=== PATIENT | female | born 1975 | race Caucasian/White ===

== ENCOUNTER → 2020-03-06 11:56 | Outpatient (BNVA) | payer BC, SELFPAY | PROVIDERS: Family Provider Family Medicine | DX: Z20.828 Contact with and (suspected) exposure to other viral communicable diseases (principal) | CPT/HCPCS: 87635 ==

== ENCOUNTER → 2024-01-21 10:12 | Outpatient (BNVA) | payer BC, SELFPAY | PROVIDERS: Family Provider Family Medicine; Visit Provider Internal Medicine | DX: E07.9 Disorder of thyroid, unspecified (principal) | CPT/HCPCS: 36415; 83516; 84439; 84443; 86376; 86800 ==

== ENCOUNTER 2024-02-05 10:29 | Outpatient (CLI) | payer BC, SELFPAY ==
--- NOTE | 2024-02-05 11:00 | FL_ITS ---
WS: [id number] FL barium swallow modifd [id number] REASON FOR EXAM: Difficulty swallowing. FLUOROSCOPY TIME: 2min [id number] # OF SPOT FILMS: None FINDINGS: Examination was supervised by the speech therapy department. In the upright sitting position lateral projection in the standing AP projection. The swallowing of varying consistencies of barium was monitored fluoroscopically and video recorded. The speech therapy department will render a detailed report of the swallowing. No aspiration or distal esophageal obstruction was identified. FL/FL barium swallow modifd [id number] IMPRESSION: Modified barium swallow as above.
== END 2024-02-05 10:30 | disposition home or self-care (01) ==
LOC: RAD 10:30
PROVIDERS: Family Provider Family Medicine; PCP Emergency Medicine; Visit Provider Internal Medicine
DX: R13.10 Dysphagia, unspecified (principal)
CPT/HCPCS: 74230; 92611

== ENCOUNTER 2024-04-03 07:38 | Outpatient (CLI) | payer BC, SELFPAY ==
[2024-04-03 08:35] LABS: Free T4 Free Thyroxine 1.09 ng/dL (0.82-1.77)
== END 2024-04-03 07:39 | disposition home or self-care (01) ==
LOC: LAB 07:39
PROVIDERS: Family Provider Family Medicine; PCP Emergency Medicine; Visit Provider Internal Medicine
DX: E07.9 Disorder of thyroid, unspecified (principal)
CPT/HCPCS: 36415; 84439; 84443

== ENCOUNTER 2024-06-25 09:43 | Outpatient (CLI) | payer BC, SELFPAY ==
[2024-06-25 10:39] LABS: Estradiol 8.2 pg/mL; Follicle Stimulating Hormone 50.8 mIU/mL; Luteinizing Hormone 29.6 mIU/mL (0.5-41.7)
== END 2024-06-25 09:44 | disposition home or self-care (01) ==
PROVIDERS: Family Provider Family Medicine; PCP Emergency Medicine; Visit Provider Internal Medicine
DX: E04.2 Nontoxic multinodular goiter (principal); R13.10 Dysphagia, unspecified; E03.8 Other specified hypothyroidism
CPT/HCPCS: 36415; 82670; 83001; 83002

== ENCOUNTER 2024-07-08 10:58 | Outpatient (CLI) | payer BC, SELFPAY ==
[2024-07-08 12:16] LABS: Free T4 Free Thyroxine 1.24 ng/dL (0.82-1.77); Thyroid Stimulating Hormone 0.69 uIU/mL (0.27-4.20)
== END 2024-07-08 10:59 | disposition home or self-care (01) ==
PROVIDERS: Visit Provider Internal Medicine
DX: E03.8 Other specified hypothyroidism (principal); E04.2 Nontoxic multinodular goiter
CPT/HCPCS: 36415; 84439; 84443

== ENCOUNTER → 2024-10-05 10:30 | Outpatient (BNVA) | payer BC, SELFPAY | PROVIDERS: Visit Provider Internal Medicine | DX: F41.9 Anxiety disorder, unspecified (principal); E03.8 Other specified hypothyroidism; R13.10 Dysphagia, unspecified; E04.2 Nontoxic multinodular goiter; Z78.0 Asymptomatic menopausal state | CPT/HCPCS: 36415; 80053; 80061; 84439; 84443; 85025 ==